=== PATIENT | male | born 1970 ===

== ENCOUNTER 2022-01-28 06:00 | Day surgery (SDC) | payer OTHER ==
[~2022-01-28] VITALS: Ht 175.3 cm; Wt 88.5 kg
[2022-01-28] MEDS ORDERED: ULTRACET PO (08:24)
[2022-01-28] MEDS ORDERED: CEFADROXIL500 MG PO (08:24)
== END 2022-01-28 10:30 | disposition home or self-care (01) ==
LOC: CIR.AMB 06:00
PROVIDERS: ATTEND Surgery
DX: D17.1 Benign lipomatous neoplasm of skin and subcutaneous tissue of trunk (principal); Z20.822 Contact with and (suspected) exposure to COVID-19